=== PATIENT | male | born 1950 | race Caucasian/White ===

== ENCOUNTER 2021-07-07 08:31 | Emergency (ER) | payer MEDICARE, OTHER ==
[~2021-07-07] VITALS: Ht 170.2 cm; Wt 49.9 kg
[2021-07-07] MEDS ORDERED: SODIUM CHLORIDE 0.9% 1,000 ML IV ONE (09:15)
[2021-07-07] MEDS ORDERED: LORazepam 2MG/ML-1ML VIAL IV ONE (09:15)
[2021-07-07 09:50] LABS: Basophils # (auto) 0 10 ^3/uL (0-0.2); Basophils % (auto) 0.7 % (0.0-2.0); Eosinophils # (auto) 0.1 10 ^3/uL (0-0.8); Eosinophils % (auto) 1.8 % (0.0-7.0); Hematocrit 37.8 % (41.0-53.0); Hemoglobin 12.4 g/dL (13.5-17.5); Lymphocytes # (auto) 1.6 10 ^3/uL (0.4-5.4); Lymphocytes % (auto) 28.3 % (10.0-50.0); Mean Corpuscular Hemoglobin 31.7 pg (28.0-32.0); Mean Corpuscular Hgb Conc. 32.9 g/dL (32.0-36.0); Mean Corpuscular Volume 96.2 fL (80.0-100.0); Monocytes # (auto) 0.4 10 ^3/uL (0-1.3); Neutrophils # (auto) 3.4 10 ^3/uL (1.6-8.6); Neutrophils % (auto) 62.2 % (37.0-80.0); Red Blood Cells 3.93 10^6/uL (4.5-5.90); Red Cell Distribution Width 13.4 % (11.8-14.3); White Blood Cell 5.5 10^3/uL (4.4-10.8)
[2021-07-07 10:10] LABS: Calcium 8.8 mg/dL (8.5-10.1); Potassium 4.2 mmol/L (3.5-5.1)
[2021-07-07 10:16] LABS: BUN/Creatinine Ratio 27.4; Bilirubin, Total 0.3 mg/dL (0.2-1.0); Total Protein 7.5 g/dL (6.4-8.2)
[2021-07-07 10:25] LABS: INR 1.05 (0.9-1.15); Partial Thromboplastin Time 26.8 sec (23.6-33.0)
[2021-07-07 18:15] VITALS: BP 142/76
== END 2021-07-07 20:56 | disposition home or self-care (01) ==
LOC: ER 08:31 → EDBD 08:31 → ER 20:56
DX: R62.7 Adult failure to thrive (principal); F41.9 Anxiety disorder, unspecified; R41.82 Altered mental status, unspecified; R94.31 Abnormal electrocardiogram [ECG] [EKG]; Z68.1 Body mass index [BMI] 19.9 or less, adult
CPT/HCPCS: 36415; 70450; 71045; 80053; 84484; 85025; 85610; 85730; 93005; 96361; 96374; 99285; J2060; J7030

== ENCOUNTER → 2021-07-09 | Emergency (ER) | payer MEDICARE ==
[~2021-07-09] VITALS: Ht 162.6 cm; Wt 63.5 kg
[2021-07-09 01:29] VITALS: BP 121/90
== END | disposition home or self-care (01) ==
LOC: ER 01:31
DX: F41.9 Anxiety disorder, unspecified (principal)

== ENCOUNTER 2021-08-27 10:45 | Inpatient (IN) | payer MEDICARE ==
[~2021-08-27] VITALS: Ht 162.6 cm; Wt 58.7 kg
[2021-08-27] MEDS ORDERED: SODIUM CHLORIDE 0.9% 1,000 ML IV ONE (11:00)
[2021-08-27 12:26] LABS: Basophils # (auto) 0 10 ^3/uL (0-0.2); Basophils % (auto) 0.4 % (0.0-2.0); Eosinophils # (auto) 0 10 ^3/uL (0-0.8); Eosinophils % (auto) 0.6 % (0.0-7.0); Hematocrit 37.4 % (41.0-53.0); Hemoglobin 12.8 g/dL (13.5-17.5); Lymphocytes # (auto) 0.7 10 ^3/uL (0.4-5.4); Lymphocytes % (auto) 13.3 % (10.0-50.0); Mean Corpuscular Hemoglobin 31.8 pg (28.0-32.0); Mean Corpuscular Hgb Conc. 34.2 g/dL (32.0-36.0); Mean Corpuscular Volume 93.1 fL (80.0-100.0); Monocytes # (auto) 0.4 10 ^3/uL (0-1.3); Monocytes % (auto) 6.9 % (0.0-12.0); Neutrophils # (auto) 4.3 10 ^3/uL (1.6-8.6); Neutrophils % (auto) 78.8 % (37.0-80.0); Nucleated Red Blood Cells % 0.1 %; Red Blood Cells 4.02 10^6/uL (4.5-5.90); Red Cell Distribution Width 13.6 % (11.8-14.3); White Blood Cell 5.5 10^3/uL (4.4-10.8)
[2021-08-27 12:38] LABS: Albumin 3.2 g/dL (3.4-5.0); Calcium 8.5 mg/dL (8.5-10.1); Potassium 4.4 mmol/L (3.5-5.1)
[2021-08-27 12:42] LABS: BUN/Creatinine Ratio 30.6; Bilirubin, Total 0.7 mg/dL (0.2-1.0); Total Protein 6.1 g/dL (6.4-8.2)
[2021-08-27] MEDS ORDERED: TEMAZEPAM 15 MG CAP PO PRN (21:15)
[2021-08-27] MEDS ORDERED: ONDANSETRON HCL 4 MG/2 ML VIAL IV PRN (21:15)
[2021-08-28] MEDS: SODIUM CHLORIDE 0.9% 1,000 ML IV SCH ×2 (01:07→10:35)
[2021-08-28 02:22] VITALS: BP 121/80
[2021-08-28 08:04] LABS: Basophils # (auto) 0 10 ^3/uL (0-0.2); Basophils % (auto) 0.5 % (0.0-2.0); Eosinophils # (auto) 0.1 10 ^3/uL (0-0.8); Eosinophils % (auto) 1.4 % (0.0-7.0); Hematocrit 34.7 % (41.0-53.0); Hemoglobin 11.7 g/dL (13.5-17.5); Lymphocytes # (auto) 1.4 10 ^3/uL (0.4-5.4); Lymphocytes % (auto) 26.4 % (10.0-50.0); Mean Corpuscular Hemoglobin 31.4 pg (28.0-32.0); Mean Corpuscular Hgb Conc. 33.9 g/dL (32.0-36.0); Mean Corpuscular Volume 92.7 fL (80.0-100.0); Monocytes # (auto) 0.4 10 ^3/uL (0-1.3); Monocytes % (auto) 7.9 % (0.0-12.0); Neutrophils # (auto) 3.3 10 ^3/uL (1.6-8.6); Neutrophils % (auto) 63.8 % (37.0-80.0); Nucleated Red Blood Cells % 0.1 %; Red Blood Cells 3.74 10^6/uL (4.5-5.90); Red Cell Distribution Width 13.6 % (11.8-14.3); White Blood Cell 5.2 10^3/uL (4.4-10.8)
[2021-08-28 08:39] LABS: Calcium 8.1 mg/dL (8.5-10.1); Potassium 3.8 mmol/L (3.5-5.1)
[2021-08-28] MEDS: ENOXAPARIN SOD 30 MG/0.3 ML SYRINGE SC SCH (09:36)
[2021-08-28] MEDS ORDERED: PANTOPRAZOLE 40 MG TAB PO SCH (10:00)
[2021-08-28] MEDS: ACETAMINOPHEN 325 MG TAB PO PRN ×2 (15:49→20:48)
[2021-08-28 18:05] LABS: Urine WBC None Seen /hpf (0 - 3)
[2021-08-28 18:37] LABS: Alcohol, Urine < 3.0 mg/dL (0-10); Amphetamine Screen, Urine NEGATIVE (NEGATIVE); Barbiturate Scree,Urine NEGATIVE (NEGATIVE); Benzodiazephine Screen, Urine NEGATIVE (NEGATIVE); Cannabinoid Screen, Urine NEGATIVE (NEGATIVE); Cocaine Screen, Urine NEGATIVE (NEGATIVE); Opiate Scree,Urine NEGATIVE (NEGATIVE); Phencyclidine Screen, Urine NEGATIVE (NEGATIVE)
[2021-08-28 19:00] LABS: Urine Bacteria NONE SEEN /hpf (None Seen); Urine Blood Negative /uL (Negative); Urine Specific Gravity 1.022 (1.001-1.035)
[2021-08-29] MEDS: SODIUM CHLORIDE 0.9% 1,000 ML IV SCH ×3 (00:03→13:03)
[2021-08-29 04:20] VITALS: BP 93/57
[2021-08-29 09:00] VITALS: BP 98/54
[2021-08-29 09:43] LABS: Hematocrit 31.9 % (41.0-53.0); Hemoglobin 11.1 g/dL (13.5-17.5)
[2021-08-29 09:56] LABS: Potassium 3.7 mmol/L (3.5-5.1)
[2021-08-29] MEDS: ENOXAPARIN SOD 30 MG/0.3 ML SYRINGE SC SCH (10:00)
[2021-08-29 10:01] LABS: Albumin 2.2 g/dL (3.4-5.0); BUN/Creatinine Ratio 23.4; Bilirubin, Total 0.2 mg/dL (0.2-1.0); Calcium 7.6 mg/dL (8.5-10.1); Total Protein 4.7 g/dL (6.4-8.2)
[2021-08-29] MEDS: Ensure HIGH Protein Chocolate 8oz Bottle PO SCH ×2 (13:02→18:00)
[2021-08-29 14:17] VITALS: BP 94/50
[2021-08-29 17:40] VITALS: BP 98/53
[2021-08-29 22:00] VITALS: BP 101/52
[2021-08-29] MEDS: NYSTATIN TOPICAL POWDER 15GM TOP SCH (22:00)
[2021-08-30 05:00] VITALS: BP 98/62
[2021-08-30 07:58] LABS: Calcium 7.6 mg/dL (8.5-10.1); Potassium 3.7 mmol/L (3.5-5.1)
[2021-08-30 08:04] LABS: BUN/Creatinine Ratio 26.1
[2021-08-30] MEDS: Ensure HIGH Protein Chocolate 8oz Bottle PO SCH ×2 (08:37→12:11)
[2021-08-30 09:00] VITALS: BP 100/60
[2021-08-30] MEDS: ENOXAPARIN SOD 30 MG/0.3 ML SYRINGE SC SCH (09:38)
[2021-08-30] MEDS: SODIUM CHLORIDE 0.9% 1,000 ML IV SCH ×2 (09:38)
[2021-08-30] MEDS: NYSTATIN TOPICAL POWDER 15GM TOP SCH (09:39)
[2021-08-30 13:00] VITALS: BP 98/57
[2021-08-30] MEDS ORDERED: MULT-351 PO (13:32)
[2021-08-30] MEDS ORDERED: CHOL20007 PO (13:32)
[2021-08-30 16:59] VITALS: BP 101/68
[2021-08-31] MEDS ORDERED: CHOLECALCIFEROL (VITD3) 2,000 UNIT CAP/TAB PO SCH (10:00)
[2021-08-31] MEDS ORDERED: MULTIPLE VITAMINS W/ MINERALS TAB PO SCH (10:00)
== END 2021-08-30 18:38 | DRG 640 ==
LOC: ER 10:45 → EDBD 10:45 → OVERFLOW 21:02 → CENTRAL 08-29 04:39
PROVIDERS: ADMIT Nurse Practitioner; ATTEND Internal Medicine
DX: E86.0 Dehydration (principal); N17.0 Acute kidney failure with tubular necrosis; E44.0 Moderate protein-calorie malnutrition; S22.39XA Fracture of one rib, unspecified side, initial encounter for closed fracture; W18.39XA Other fall on same level, initial encounter; R62.7 Adult failure to thrive; Z20.822 Contact with and (suspected) exposure to COVID-19; Z68.22 Body mass index [BMI] 22.0-22.9, adult; Y93.89 Activity, other specified; Y92.89 Other specified places as the place of occurrence of the external cause; Y99.8 Other external cause status; Z53.20 Procedure and treatment not carried out because of patient's decision for unspecified reasons
CPT/HCPCS: 36415; 70450; 71045; 76775; 80048; 80053; 80307; 81001; 82306; 82553; 83735; 83880; 84443; 84484; 85014; 85018; 85025; 87426; 93005; 96360; 97163; G0378; J2405

== ENCOUNTER 2021-11-09 00:21 | Inpatient (IN) | payer MEDICARE ==
[~2021-11-09] VITALS: Ht 170.2 cm; Wt 52.7 kg
[~2021-11-09 00:21] MED LIST: MULT-351 PO
[2021-11-09 01:22] LABS: Basophils # (auto) 0.1 10 ^3/uL (0-0.2); Basophils % (auto) 1.3 % (0.0-2.0); Eosinophils # (auto) 0.2 10 ^3/uL (0-0.8); Eosinophils % (auto) 3.3 % (0.0-7.0); Hemoglobin 12.5 g/dL (13.5-17.5); Lymphocytes # (auto) 1.7 10 ^3/uL (0.4-5.4); Lymphocytes % (auto) 28.2 % (10.0-50.0); Mean Corpuscular Hemoglobin 33.9 pg (28.0-32.0); Mean Corpuscular Hgb Conc. 34.6 g/dL (32.0-36.0); Mean Corpuscular Volume 97.8 fL (80.0-100.0); Monocytes # (auto) 0.6 10 ^3/uL (0-1.3); Neutrophils # (auto) 3.5 10 ^3/uL (1.6-8.6); Neutrophils % (auto) 57.2 % (37.0-80.0); Nucleated Red Blood Cells % 0.1 %; Red Blood Cells 3.68 10^6/uL (4.5-5.90); Red Cell Distribution Width 12.8 % (11.8-14.3); White Blood Cell 6.1 10^3/uL (4.4-10.8)
[2021-11-09 01:38] LABS: Albumin 3.6 g/dL (3.4-5.0); Anion Gap 5 (5-15); BUN/Creatinine Ratio 21.6; Blood Alcohol < 3.0 mg/dL (0-5); Blood Urea Nitrogen 32 mg/dL (7-18); Calcium 9.3 mg/dL (8.5-10.1); Carbon Dioxide 32 mmol/L (21-32); Chloride 106 mmol/L (98-107); GFR African American 60 mL/min; GFR Non-African American 50 mL/min; Glucose 103 mg/dL (74-106); Magnesium 2.5 mg/dL (1.6-2.6); Potassium 4.2 mmol/L (3.5-5.1); Sodium 143 mmol/L (136-145)
[2021-11-09 01:41] LABS: Alanine Aminotransferase 22 U/L (16-61); Alkaline Phosphatase 72 U/L (45-117); Aspartate Aminotransferase 22 U/L (15-37); Bilirubin, Total 0.5 mg/dL (0.2-1.0); Total Protein 7.1 g/dL (6.4-8.2)
[2021-11-09 08:38] LABS: Urine WBC None Seen /hpf (0 - 3)
[2021-11-09 09:04] LABS: Urine Amorphous Crystal MOD /hpf (None Seen); Urine Bacteria NONE SEEN /hpf (None Seen); Urine Blood Negative /uL (Negative); Urine Budding Yeast FEW /hpf (None Seen); Urine Specific Gravity 1.022 (1.001-1.035)
[2021-11-09] MEDS ORDERED: ONDANSETRON HCL 4 MG/2 ML VIAL IV PRN (12:30)
[2021-11-09 13:36] LABS: Alcohol, Urine < 3.0 mg/dL (0-10); Amphetamine Screen, Urine NEGATIVE (NEGATIVE); Barbiturate Scree,Urine NEGATIVE (NEGATIVE); Benzodiazephine Screen, Urine NEGATIVE (NEGATIVE); Cannabinoid Screen, Urine NEGATIVE (NEGATIVE); Cocaine Screen, Urine NEGATIVE (NEGATIVE); Opiate Scree,Urine NEGATIVE (NEGATIVE); Phencyclidine Screen, Urine NEGATIVE (NEGATIVE)
[2021-11-09 13:40] LABS: Cholesterol 184 mg/dL (< 200)
[2021-11-09 13:43] LABS: HDL Cholesterol 61 mg/dL (40-59); LDL Cholesterol 107 mg/dL (< 100); Triglycerides 114 mg/dL (< 150)
[2021-11-09 22:00] VITALS: BP 86/38
[2021-11-10 05:00] VITALS: BP 89/60
[2021-11-10 08:49] VITALS: BP 132/71
[2021-11-10] MEDS: PANTOPRAZOLE 40 MG TAB PO SCH ×2 (10:00→10:22)
[2021-11-10 13:00] VITALS: BP 124/65
[2021-11-10 17:00] VITALS: BP 94/52
[2021-11-10] MEDS ORDERED: LORazepam 2MG/ML-1ML VIAL IV PRN (20:00)
[2021-11-10 22:00] VITALS: BP 85/42
[2021-11-11 05:27] VITALS: BP_SYST 86; BP_SYST 92; BP_DIAS 43; BP_DIAS 65
[2021-11-11] MEDS: PANTOPRAZOLE 40 MG TAB PO SCH ×2 (08:28→08:33)
[2021-11-11 08:45] VITALS: BP 160/133
[2021-11-11 12:59] VITALS: BP 125/50
[2021-11-11] MEDS: SODIUM CHLORIDE 0.9% 1,000 ML IV SCH ×2 (13:15→23:15)
[2021-11-11] MEDS ORDERED: ACETAMINOPHEN 500 MG TAB PO PRN (13:15)
[2021-11-11 17:00] VITALS: BP 110/74
[2021-11-11] MEDS: DOCUSATE SOD 100 MG CAP PO PRN ×2 (21:24→21:31)
[2021-11-11 22:00] VITALS: BP 91/51
[2021-11-11 23:18] LABS: Basophils # (auto) 0.1 10 ^3/uL (0-0.2); Basophils % (auto) 1.2 % (0.0-2.0); Eosinophils # (auto) 0.1 10 ^3/uL (0-0.8); Eosinophils % (auto) 2.6 % (0.0-7.0); Hematocrit 34.1 % (41.0-53.0); Hemoglobin 11.7 g/dL (13.5-17.5); Lymphocytes # (auto) 2.1 10 ^3/uL (0.4-5.4); Lymphocytes % (auto) 40.1 % (10.0-50.0); Mean Corpuscular Hemoglobin 33.1 pg (28.0-32.0); Mean Corpuscular Hgb Conc. 34.3 g/dL (32.0-36.0); Mean Corpuscular Volume 96.6 fL (80.0-100.0); Monocytes # (auto) 0.6 10 ^3/uL (0-1.3); Monocytes % (auto) 10.7 % (0.0-12.0); Neutrophils # (auto) 2.3 10 ^3/uL (1.6-8.6); Neutrophils % (auto) 45.4 % (37.0-80.0); Nucleated Red Blood Cells % 0.1 %; Red Blood Cells 3.53 10^6/uL (4.5-5.90); Red Cell Distribution Width 12.9 % (11.8-14.3); White Blood Cell 5.2 10^3/uL (4.4-10.8)
[2021-11-11 23:37] LABS: Albumin 3.2 g/dL (3.4-5.0); BUN/Creatinine Ratio 29.3; Potassium 4.3 mmol/L (3.5-5.1)
[2021-11-11 23:39] LABS: Bilirubin, Total 0.1 mg/dL (0.2-1.0); Total Protein 6.5 g/dL (6.4-8.2)
[2021-11-12 05:00] VITALS: BP 95/56
[2021-11-12 09:00] VITALS: BP 92/62
[2021-11-12] MEDS: SODIUM CHLORIDE 0.9% 1,000 ML IV SCH ×2 (09:15→19:15)
[2021-11-12] MEDS: PANTOPRAZOLE 40 MG TAB PO SCH (10:00)
[2021-11-12 13:00] VITALS: BP 94/55
[2021-11-12 17:04] VITALS: BP 97/58
[2021-11-12 22:00] VITALS: BP 96/48
[2021-11-13 05:14] VITALS: BP 90/57
[2021-11-13] MEDS: SODIUM CHLORIDE 0.9% 1,000 ML IV SCH (05:15)
[2021-11-13 09:00] VITALS: BP 95/48
[2021-11-13] MEDS: PANTOPRAZOLE 40 MG TAB PO SCH (10:00)
[2021-11-13 10:31] LABS: Folate (Folic Acid) 16.8 ng/mL (5.38-24)
[2021-11-13 13:00] VITALS: BP 144/61
[2021-11-13 17:00] VITALS: BP 120/59
[2021-11-13 22:00] VITALS: BP 132/103
[2021-11-14 05:00] VITALS: BP 99/65
[2021-11-14 08:00] VITALS: BP 133/86
[2021-11-14 12:00] VITALS: BP 100/50
== END 2021-11-14 14:00 | DRG 92 ==
LOC: EDUNIT# 00:21 → ER 00:21 → EDBD 00:21 → OVERFLOW 12:29 → WEST WING 15:14
PROVIDERS: ADMIT Registered Nurse; ATTEND Internal Medicine Pulmonary Disease
DX: G92.8 Other toxic encephalopathy (principal); N17.9 Acute kidney failure, unspecified; R64 Cachexia; G25.9 Extrapyramidal and movement disorder, unspecified; Z68.1 Body mass index [BMI] 19.9 or less, adult; F02.80 Dementia in other diseases classified elsewhere, unspecified severity, without behavioral disturbance, psychotic disturbance, mood disturbance, and anxiety; G20 Parkinson's disease; N18.31 Chronic kidney disease, stage 3a; Z20.822 Contact with and (suspected) exposure to COVID-19; Z59.00 Homelessness unspecified
CPT/HCPCS: 36415; 70450; 70551; 71045; 74176; 80053; 80061; 80307; 80320; 81001; 82607; 82746; 82962; 83735; 84443; 85025; 93005; 97163; G0378